=== PATIENT | female | born 1995 | race Caucasian/White ===

== ENCOUNTER → 2023-06-28 08:08 | Outpatient (REF) | payer BC, SELFPAY | LOC: WDC 08:08 | PROVIDERS: ATTENDING PHYSICIAN Obstetrics & Gynecology Gynecology | DX: L98.8 Other specified disorders of the skin and subcutaneous tissue (principal); N63.21 Unspecified lump in the left breast, upper outer quadrant | CPT/HCPCS: 76642 ==